=== PATIENT | male | born 1995 ===

== ENCOUNTER 2018-01-13 03:35 | Emergency (ER) | payer SELFPAY ==
[2018-01-13 03:36] VITALS: BP 127/85
--- NOTE | 2018-01-13 03:40 | ER Report ---
History and Physical Time Seen By MD: 03:34 HPI/ROS CHIEF COMPLAINT: [facility] clearance, alcohol intoxication HISTORY OF PRESENT ILLNESS: 22-year-old male brought in by [facility] for skilled nursing clearance. Patient has gross alcohol intoxication. Patient has some abrasions on his head and cheek from being pursued by the police and he was apprehended. Patient voices no complaints. Patient has no past medical history. Patient states his last tetanus shots up-to-date. REVIEW OF SYSTEMS: Respiratory: No cough, no dyspnea. Cardiovascular: No chest pain, no palpitations. Gastrointestinal: No vomiting, no abdominal pain. Musculoskeletal: No back pain. Allergies: Coded Allergies: ibuprofen (Verified Allergy, Intermediate, 01/13/18) SWELLS UP Home Meds No Active Prescriptions or Reported Meds Reviewed Nurses Notes: Yes Old Medical Records Reviewed: Yes Constitutional Vital Sign - Last 24 Hours 01/13/18 03:36 Temp 98.4 Pulse 95 Resp 12 B/P (MAP) 127/85 Pulse Ox 98 O2 Delivery Room Air Physical Exam General Appearance: The patient is alert, has no immediate need for airway protection and no current signs of toxicity. Vital signs stable, afebrile, pulse ox normal, palpation of the head and neck reveal no tenderness or trauma. There is superficial abrasion to the left maxillary cheek area HEENT: Pupils equal and round no injection. Respiratory: Chest is non tender, lungs are clear to auscultation. Cardiac: regular rate and rhythm Gastrointestinal: Abdomen is soft and non tender, no masses, bowel sounds normal. Musculoskeletal: Neck: Neck is supple and non tender. Extremities have full range of motion and are non tender. Skin: No rashes or lesions. DIFFERENTIAL DIAGNOSIS: After history and physical exam differential diagnosis was considered for alcohol intoxication, polysubstance abuse, skilled nursing clearance Medical Decision Making ED Course/Re-evaluation ED Course Patient was admitted to an examination room. H&P was done. The differential diagnosis was considered. On clinical examination. Patient has stable vital signs. There are no clinical findings other than a superficial abrasion. Patient's medically cleared for skilled nursing admission. Decision to Disposition Date: Jan 13, 2018 Decision to Disposition Time: 03:37 Depart Departure Latest Vital Signs Vital Signs Date Time Temp Pulse Resp B/P (MAP) Pulse Ox O2 Delivery O2 Flow Rate FiO2 01/13/18 03:36 98.4 95 12 127/85 98 Room Air Impression: Primary Impression: Medical clearance for incarceration Additional Impressions: Alcohol intoxication Abrasion head Condition: Improved Disposition: [facility] TO [facility]RECTIONAL F New Scripts No Active Prescriptions or Reported Meds Patient Instructions: Abrasion (ED), Alcohol Intoxication (ED) Additional Instructions: Medical cleared for skilled nursing admission Problem Qualifiers Additional Impressions: Alcohol intoxication Complication of substance-induced condition: uncomplicated Qualified Codes: F10.920 - Alcohol use, unspecified with intoxication, uncomplicated DG GONSALVES DO Jan 13, 2018 03:40
== END 2018-01-13 03:45 ==
LOC: ER 03:39
DX: F10.920 Alcohol use, unspecified with intoxication, uncomplicated (principal); S00.81XA Abrasion of other part of head, initial encounter
CPT/HCPCS: 99281